=== PATIENT | male | born 1960 | race African-American/Black ===

== ENCOUNTER 2020-04-01 15:03 | Emergency (ER) | payer OTHER ==
[~2020-04-01] VITALS: Ht 182.9 cm; Wt 92.1 kg
[~2020-04-01 15:03] MED LIST: CLONIDINE0.1 PO; HYDROCHLOROTHIA25 M2 PO; LISINOPRIL10 MG PO; ULTRAM 50MG TAB50 MG PO
[2020-04-01] MEDS ORDERED: NOHOMEMEDICATIONS (15:23)
[2020-04-01 15:37] LABS: ABSOLUTE NEUTROPHILS 2.7 thou/uL (1.4-8.2); BASOPHILS 0.6 % (0.0-2.0); EOSINOPHILS 0.4 % (0.0-3.0); HEMATOCRIT 42.4 % (42.0-52.0); HEMOGLOBIN 13.8 gm/dL (14.0-18.0); MCH 29.4 pg (26.0-34.0); MCHC 32.6 g/dL (28.0-37.0); MCV 90.2 fL (80.0-100.0); MONOCYTES 8.3 % (1.0-8.0); PLATELET COUNT 144 thou/uL (150-400); POLYS 72.7 % (36.0-66.0); RDW 13.3 % (10.5-14.5); WBC 3.7 thou/uL (4.0-11.0)
[2020-04-01 15:40] LABS: ANION GAP 11 mmol/L (7-16); BUN 16 mg/dL (7-18); CALCIUM 9.6 mg/dL (8.5-10.1); CHLORIDE 103 mmol/L (98-107); CO2 25 mmol/L (21-32); CREATININE 1.2 mg/dL (0.7-1.3); GLUCOSE 132 mg/dL (74-106); POTASSIUM 3.6 mmol/L (3.5-5.1); SODIUM 139 mmol/L (136-145)
[2020-04-01 15:49] LABS: TROPONIN-I <0.06 ng/mL (<0.06)
--- NOTE | 2020-04-01 15:54 | EKG ---
[facility] [place] [address] ELECTROCARDIOGRAM REPORT Name: SEBASTIAN ALVAREZ Room #: [facility]..#: [id number] Admission: Attend Phys: Discharge: Date of : 60 Report #: [id number] THIS REPORT FOR: cc: CYNTHIA - Jamia family physician/PCP Kirby Cruz MD ~ THIS REPORT FOR: //name// [facility] ED Test Date: 2020-04-01 Test Time: 15:18:05 Pat Name: SEBASTIAN ALVAREZ Department: Room: Gender: M [employer] Worker: KATLIN : 1960 Requested By: Shalini Cummings Order Number: [id number] MD: Kirby Cruz Measurements Intervals [place] Rate: 73 P: 60 GA: 158 QRS: 43 QRSD: 88 T: 45 QT: 379 QTc: 418 Interpretive Statements Sinus rhythm Probable left atrial enlargement Minimal ST elevation, anterior leads Compared to ECG 12/13/2012 20:25:12 ST (T wave) deviation now present Electronically Signed On 04-01-2020 15:53:05 CDT by Kirby Cruz [email or web address] <ELECTRONICALLY SIGNED> By: Kirby Cruz MD 04/01/20 1553 1518 1518 Kirby Cruz MD /LIZZ
[2020-04-01 17:40] LABS: URINE BILIRUBIN NEGATIVE (Negative); URINE BLOOD NEGATIVE (Negative); URINE CLARITY CLEAR; URINE COLOR YELLOW; URINE GLUCOSE-RANDOM* NEGATIVE (Negative); URINE KETONES 1+ (Negative); URINE LEUKOCYTES-REFLEX NEGATIVE (Negative); URINE NITRITE-REFLEX NEGATIVE (Negative); URINE PROTEIN (DIPSTICK) 2+ (Negative); URINE SPECIFIC GRAVITY >= 1.030 (1.005-1.035); URINE UROBILINOGEN 0.2 E.U./dl (0.2-1.0)
[2020-04-01 17:49] LABS: AMP/METHAMP Negative (Negative); BARBITURATES Negative (Negative); BENZODIAZEPINES Negative (Negative); COCAINE Negative (Negative); METHADONE Negative (Negative); OPIATES Negative (Negative); PCP Negative (Negative)
[2020-04-01 17:51] LABS: BACTERIA-REFLEX 1-9 Few /HPF (None Seen); CASTS None Seen /LPF (None Seen); CRYSTALS None Seen /LPF (None Seen); SQUAMOUS 4-10 Moderate /LPF (0-3); URINE RBC None Seen /HPF (0-2); URINE WBC-REFLEX 0-5 Rare /HPF (0-5)
[2020-04-01 22:17] VITALS: BP 150/87
== END 2020-04-01 22:20 | disposition home or self-care (01) ==
LOC: ER 15:03
PROVIDERS: Nurse Practitioner Family
DX: R51 Headache (principal); F31.9 Bipolar disorder, unspecified; I10 Essential (primary) hypertension; F12.90 Cannabis use, unspecified, uncomplicated; F43.10 Post-traumatic stress disorder, unspecified; Z79.899 Other long term (current) drug therapy; Z86.73 Personal history of transient ischemic attack (TIA), and cerebral infarction without residual deficits

== ENCOUNTER 2021-09-12 16:50 | Emergency (ER) | payer MEDICARE, OTHER ==
[~2021-09-12] VITALS: Ht 182.9 cm; Wt 94.3 kg
[~2021-09-12 16:50] MED LIST changes: +NOHOMEMEDICATIONS
[2021-09-12 16:59] VITALS: BP 151/106
[2021-09-12] MEDS ORDERED: LOSARTAN POTASS50 MG PO (18:13)
[2021-09-12] MEDS ORDERED: CELEXA 20 MG TA20 MG PO (18:13)
[2021-09-12 18:25] LABS: ANION GAP 8 mmol/L (7-16); BUN 18 mg/dL (7-18); CALCIUM 8.9 mg/dL (8.5-10.1); CHLORIDE 106 mmol/L (98-107); CO2 26 mmol/L (21-32); CREATININE 0.8 mg/dL (0.7-1.3); GLUCOSE 76 mg/dL (74-106); SODIUM 140 mmol/L (136-145)
[2021-09-12 18:31] LABS: ALBUMIN 3.7 g/dL (3.4-5.0); SALICYLATE < 2.8 mg/dL (2.8-20.0); SGOT 39 U/L (15-37); SGPT 36 U/L (16-63); TOTAL BILIRUBIN 1.1 mg/dL (0.2-1.0); TOTAL PROTEIN 7.2 g/dL (6.4-8.2)
[2021-09-12 18:33] LABS: DIRECT BILIRUBIN 0.2 mg/dL (<0.1-0.2); POTASSIUM 3.9 mmol/L (3.5-5.1)
[2021-09-12 18:39] LABS: ABSOLUTE NEUTROPHILS 3.6 thou/uL (1.4-8.2); BASOPHILS 0.4 % (0.0-2.0); EOSINOPHILS 0.3 % (0.0-3.0); HEMATOCRIT 38.5 % (42.0-52.0); HEMOGLOBIN 12.6 gm/dL (14.0-18.0); LYMPHOCYTES 17.6 % (24.0-44.0); MCH 28.8 pg (26.0-34.0); MCHC 32.7 g/dL (28.0-37.0); MONOCYTES 10.9 % (1.0-8.0); PLATELET COUNT 155 thou/uL (150-400); POLYS 70.8 % (36.0-66.0); RBC 4.37 mil/uL (4.50-6.00); RDW 13.4 % (10.5-14.5); WBC 5.1 thou/uL (4.0-11.0)
[2021-09-12 18:49] LABS: AMP/METHAMP Negative (Negative); BARBITURATES Negative (Negative); BENZODIAZEPINES Negative (Negative); COCAINE Negative (Negative); METHADONE Negative (Negative); OPIATES Negative (Negative); PCP Negative (Negative)
== END 2021-09-13 05:49 | disposition home or self-care (01) ==
LOC: ER 16:50
PROVIDERS: Nurse Practitioner
DX: F91.9 Conduct disorder, unspecified (principal); Z20.822 Contact with and (suspected) exposure to COVID-19; I10 Essential (primary) hypertension; Z86.73 Personal history of transient ischemic attack (TIA), and cerebral infarction without residual deficits; Z79.899 Other long term (current) drug therapy